=== PATIENT | female | born 1955 | race Caucasian/White ===

== ENCOUNTER 2022-01-25 11:11 | Emergency (ER) | payer OTHER, MEDICAID ==
[~2022-01-25] VITALS: Ht 157.5 cm; Wt 60.0 kg
[2022-01-25] MEDS ORDERED: IBUPROFEN 400MG TABLET PO ONE (13:00)
[2022-01-25] MEDS ORDERED: ACETAMINOPHEN 325MG TABLET PO ONE (13:00)
[2022-01-25 13:30] VITALS: BP 144/66
== END 2022-01-25 14:46 | disposition home or self-care (01) ==
LOC: ER 11:30
DX: M79.602 Pain in left arm (principal); I10 Essential (primary) hypertension; E78.00 Pure hypercholesterolemia, unspecified; E11.9 Type 2 diabetes mellitus without complications; Z90.49 Acquired absence of other specified parts of digestive tract; W18.30XA Fall on same level, unspecified, initial encounter; Y93.89 Activity, other specified; Y92.89 Other specified places as the place of occurrence of the external cause; Y99.8 Other external cause status
CPT/HCPCS: 73030; 73070; 99284